=== PATIENT | male | born 2000 | race Caucasian/White ===

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

== ENCOUNTER 2022-02-13 19:43 | Emergency (ER) | payer OTHER ==
[2022-02-13 19:58] VITALS: RESP 18
[2022-02-13 20:16] LABS: Glucose,Whole Blood 93 mg/dL (75-99)
[2022-02-13] MEDS ORDERED: SODIUM CHLORIDE 0.9% 1,000 ML IV STA (20:40)
[2022-02-13] MEDS ORDERED: ACETAMINOPHEN TAB 500 MG TAB PO STA (20:41)
--- NOTE | 2022-02-13 20:51 | ED ---
General Adult HPI - General Chief complaint: Seizure Stated complaint: Seizure Time Seen by Provider: 02/13/22 20:12 Source: patient, EMS, RN notes reviewed Mode of arrival: EMS Limitations: no limitations - History of Present Illness Initial comments: 22-year-old male presents to the emergency department for evaluation status post seizure. 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 Coworker describes the seizure as lasting for 60 seconds with full body convulsion activity. Does complain of abrasion on the back of his scalp reports that he bit the inside of his mouth. Denies loss of bowel or bladder control. History of seizures though has only had four in his life and is not on any anti-seizure medications. Patient complained of nausea initially but states this has resolved. Does have a mild headache. Denies dizziness, vision changes, chest pain, difficulty breathing, abdominal pain, vomiting, diarrhea, hematuria, back pain, or extremity discomfort. - Related Data Home Medications Medication Instructions Recorded Confirmed No Known Home Medications 02/13/22 02/13/22 Allergies Allergy/AdvReac Type Severity Reaction Status Date / Time No Known Allergies Allergy Verified 02/13/22 21:55 Review of Systems ROS Statement: Those systems with pertinent positive or pertinent negative responses have been documented in the HPI. ROS Other: All systems not noted in ROS Statement are negative. 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 Initial temperature 97.5, pulse 60, respirations 18, blood pressure 113/72, pulse ox 99% on room air.) General appearance: alert, in no apparent distress Head exam: Present: normocephalic, other (3 cm abrasion on the right occipital region of the scalp) Expanded Head exam: Absent: laceration, contusion, hematoma, raccoon eyes, reilly's sign, tenderness of temporal artery, CSF rhinorrhea, CSF otorrhea Eye exam: Present: normal appearance, PERRL, EOMI. Absent: scleral icterus, conjunctival injection, nystagmus, periorbital swelling, periorbital tenderness Pupils: Absent: unequal ENT exam: Present: normal exam, mucous membranes moist, TM's normal bilaterally, other (small area of injury to the oral mucosa of the right lower lip consistent with bite injury) Neck exam: Present: normal inspection, full ROM. Absent: tenderness, meningismus, lymphadenopathy Respiratory exam: Present: normal lung sounds bilaterally. Absent: respiratory distress, wheezes, rales, rhonchi, stridor, chest wall tenderness Cardiovascular Exam: Present: regular rate, normal rhythm, normal heart sounds. Absent: systolic murmur, diastolic murmur, rubs, gallop, clicks GI/Abdominal exam: Present: soft, normal bowel sounds. Absent: distended, tenderness, guarding, rebound, rigid Extremities exam: Present: normal inspection, full ROM, normal capillary refill. Absent: tenderness, pedal edema, joint swelling Back exam: Present: normal inspection. Absent: paraspinal tenderness, vertebral tenderness Neurological exam: Present: alert, oriented X3 Expanded Patient oriented to: Present: person, place, time Speech: Present: fluid speech Cranial nerves: EOM's Intact: Normal, Tongue Deviation: Normal, Nystagmus: Normal, Facial Palsy with Forehead Movement: Normal Cerebellar function: Finger to Nose: Normal Motor strength exam: RUE: 5, LUE: 5, RLE: 5, LLE: 5 Eye Response: (4) open spontaneously Motor Response: (6) obeys commands Verbal Response: (5) oriented [place] Total: 15 Psychiatric exam: Present: normal affect, normal mood Skin exam: Present: warm, dry, intact, normal color. Absent: rash Course Vital Signs 02/13/22 02/14/22 19:45 01:01 Temperature 97.5 F L 98.6 F Pulse Rate 60 52 L Respiratory 18 18 Rate Blood Pressure 113/72 112/62 O2 Sat by Pulse 99 99 Oximetry - Reevaluation(s) Reevaluation #1: 02/13/22 22:15 Upon reassessment, patient is resting comfortably reporting his pain level is improved. Discussed the plan to discharge home and follow-up with neurology on an outpatient basis. Patient and mother are agreeable. Medical Decision Making - Medical Decision Making This is a pleasant 22-year-old male who presents to the emergency department for evaluation status post seizure. Upon exam, patient is awake, alert, and oriented 4. He is neurologically intact with no focal deficit. Complains of headache and is noted to have an abrasion on the right occipital region of the scalp. Patient was given IV fluids, Tylenol, and ice was applied to area of tenderness. Laboratory studies were obtained and are unremarkable. CT is negative. Patient continues to feel improved and is tolerating oral intake without difficulty. He will be discharged home to follow up with neurology on an outpatient basis. Return parameters were discussed in detail. Patient verbalizes understanding and agrees with this plan. Attending: Coby. - Lab Data Result diagrams: 02/13/22 20:45 02/13/22 20:45 Lab Results 02/13/22 02/13/22 02/13/22 Range/Units 20:15 20:45 20:45 WBC 6.3 (3.8-10.6) k/uL RBC 4.82 (4.30-5.90) m/uL Hgb 14.0 (13.0-17.5) gm/dL Hct 43.1 (39.0-53.0) % MCV 89.3 (80.0-100.0) fL MCH 29.1 (25.0-35.0) pg MCHC 32.6 (31.0-37.0) g/dL RDW 11.9 (11.5-15.5) % Plt Count 179 (150-450) k/uL MPV 9.9 Neutrophils % 51 % Lymphocytes % 40 % Monocytes % 5 % Eosinophils % 1 % Basophils % 2 % Neutrophils # 3.2 (1.3-7.7) k/uL Lymphocytes # 2.5 (1.0-4.8) k/uL Monocytes # 0.3 (0-1.0) k/uL Eosinophils # 0.1 (0-0.7) k/uL Basophils # 0.1 (0-0.2) k/uL Sodium (137-145) mmol/L Potassium (3.5-5.1) mmol/L Chloride (98-107) mmol/L Carbon Dioxide (22-30) mmol/L Anion Gap mmol/L BUN (9-20) mg/dL Creatinine (0.66-1.25) mg/dL Est GFR (CKD-EPI)AfAm (>60 ml/min/1.73 sqM) Est GFR (CKD-EPI)NonAf (>60 ml/min/1.73 sqM) Glucose (74-99) mg/dL POC Glucose (mg/dL) 93 (75-99) mg/dL POC Glu Computer Education Teacher ID Huy Gupta Calcium (8.4-10.2) mg/dL Magnesium (1.6-2.3) mg/dL Total Bilirubin (0.2-1.3) mg/dL AST (17-59) U/L ALT (4-49) U/L Alkaline Phosphatase (38-126) U/L Total Protein (6.3-8.2) g/dL Albumin (3.5-5.0) g/dL Urine Color Light Yellow Urine Appearance Clear (Clear) Urine pH 7.0 (5.0-8.0) Ur Specific [place] 1.011 (1.001-1.035) Urine Protein Negative (Negative) Urine Glucose (UA) Negative (Negative) Urine Ketones Negative (Negative) Urine Blood Negative (Negative) Urine Nitrite Negative (Negative) Urine Bilirubin Negative (Negative) Urine Urobilinogen <2.0 (<2.0) mg/dL Ur Leukocyte Esterase Negative (Negative) 02/13/22 Range/Units 20:45 WBC (3.8-10.6) k/uL RBC (4.30-5.90) m/uL Hgb (13.0-17.5) gm/dL Hct (39.0-53.0) % MCV (80.0-100.0) fL MCH (25.0-35.0) pg MCHC (31.0-37.0) g/dL RDW (11.5-15.5) % Plt Count (150-450) k/uL MPV Neutrophils % % Lymphocytes % % Monocytes % % Eosinophils % % Basophils % % Neutrophils # (1.3-7.7) k/uL Lymphocytes # (1.0-4.8) k/uL Monocytes # (0-1.0) k/uL Eosinophils # (0-0.7) k/uL Basophils # (0-0.2) k/uL Sodium 138 (137-145) mmol/L Potassium 3.9 (3.5-5.1) mmol/L Chloride 101 (98-107) mmol/L Carbon Dioxide 25 (22-30) mmol/L Anion Gap 12 mmol/L BUN 16 (9-20) mg/dL Creatinine 0.76 (0.66-1.25) mg/dL Est GFR (CKD-EPI)AfAm >90 (>60 ml/min/1.73 sqM) Est GFR (CKD-EPI)NonAf >90 (>60 ml/min/1.73 sqM) Glucose 91 (74-99) mg/dL POC Glucose (mg/dL) (75-99) mg/dL POC Glu Computer Education Teacher ID Calcium 9.5 (8.4-10.2) mg/dL Magnesium 2.3 (1.6-2.3) mg/dL Total Bilirubin 0.3 (0.2-1.3) mg/dL AST 23 (17-59) U/L ALT 16 (4-49) U/L Alkaline Phosphatase 54 (38-126) U/L Total Protein 7.0 (6.3-8.2) g/dL Albumin 4.6 (3.5-5.0) g/dL Urine Color Urine Appearance (Clear) Urine pH (5.0-8.0) Ur Specific [place] (1.001-1.035) Urine Protein (Negative) Urine Glucose (UA) (Negative) Urine Ketones (Negative) Urine Blood (Negative) Urine Nitrite (Negative) Urine Bilirubin (Negative) Urine Urobilinogen (<2.0) mg/dL Ur Leukocyte Esterase (Negative) - EKG Data EKG shows normal: sinus rhythm Rate: bradycardia EKG Comments: EKG obtained at 2003 shows sinus bradycardia with sinus arrhythmia and early repolarization. Ventricular rate 52, WI interval 175, QRS duration 97, QT/QTC 360/339. Interpretation borderline ECG. - Radiology Data Radiology results: report reviewed, image reviewed CT of the brain and C-spine was obtained. Report was reviewed in its entirety. Impression per Dr. Maddox is #1. No acute intracranial process. No bruit 2. Postsurgical changes to the skull underlying frontal lobe on the right. #3. No evidence of cervical spine fracture. Disposition Clinical Impression: Seizure, Scalp abrasion Disposition: HOME SELF-CARE Condition: Stable Instructions (If sedation given, give patient instructions): Head Injury (ED), Recurrent Seizures in Adults (ED) Additional Instructions: Please establish with neurology for follow-up care and evaluation. May take Tylenol or Motrin if needed for pain or discomfort. Monitor carefully for any signs of confusion, repeated episodes of vomiting, or difficulty to awaken. Return to the emergency department with any new, worsening, or concerning symptoms. Is patient prescribed a controlled substance at d/c from ED?: No Referrals: None,Stated [Primary Care Provider] - 1-2 days Manpreet Erickson MD [STAFF PHYSICIAN] - 1-2 days Time of Disposition: 23:00
[2022-02-13 20:57] LABS: Basophils # (A) 0.1 k/uL (0-0.2); Basophils % (A) 2 %; Eosinophils # (A) 0.1 k/uL (0-0.7); Eosinophils % (A) 1 %; HCT 43.1 % (39.0-53.0); Lymphocytes # (A) 2.5 k/uL (1.0-4.8); Lymphocytes % (A) 40 %; MCH 29.1 pg (25.0-35.0); MCHC 32.6 g/dL (31.0-37.0); MCV 89.3 fL (80.0-100.0); Mean Platelet Volume 9.9; Monocytes # (A) 0.3 k/uL (0-1.0); Monocytes % (A) 5 %; Neutrophils # (A) 3.2 k/uL (1.3-7.7); Neutrophils % (A) 51 %; Platelet Count 179 k/uL (150-450); RBC 4.82 m/uL (4.30-5.90); RDW 11.9 % (11.5-15.5); WBC 6.3 k/uL (3.8-10.6)
[2022-02-13 21:20] LABS: ALT 16 U/L (4-49); AST 23 U/L (17-59); African American GFR (CKD) >90 (>60 ml/min/1.73 sqM); Albumin 4.6 g/dL (3.5-5.0); Alkaline Phosphatase 54 U/L (38-126); Anion Gap 12 mmol/L; Blood Urea Nitrogen 16 mg/dL (9-20); Calcium 9.5 mg/dL (8.4-10.2); Carbon Dioxide 25 mmol/L (22-30); Chloride 101 mmol/L (98-107); Glucose 91 mg/dL (74-99); Magnesium 2.3 mg/dL (1.6-2.3); Non-African American GFR(CKD) >90 (>60 ml/min/1.73 sqM); Potassium 3.9 mmol/L (3.5-5.1); Sodium 138 mmol/L (137-145); Total Bilirubin 0.3 mg/dL (0.2-1.3)
--- NOTE | 2022-02-13 21:20 | CT ---
EXAMINATION TYPE: CT brain cspine wo con CT DLP: 1457.1 mGycm, Automated exposure control for dose reduction was used. DATE OF EXAM: 02/13/2022 9:01 PM COMPARISON: None.. CLINICAL INDICATION:Male, 22 years old with history of pain; seizure TECHNIQUE: Brain: Multiple axial CT images of the brain were obtained without IV contrast. Cspine: Axial CT images from the skull base to the inferior aspect of T2 we obtained without intraven ous contrast. Coronal and sagittal reformatted images were also reviewed. FINDINGS: Brain: Extra-axial spaces: No abnormal extra-axial fluid collections. Ventricular system: Within normal limits Cerebral parenchyma: Presumably postsurgical changes to the frontal lobe on the right adjacent to the craniotomy. No acute intraparenchymal hemorrhage or mass effect. The ravi-white junction is well di fferentiated. Cerebellum: Unremarkable. Mass effect: No evidence of midline shift. Intracranial vasculature: unremarkable Soft tissues: Normal. Calvarium/osseous structures: No depressed skull fracture. Craniotomy changes in the frontal skull. Paranasal sinuses and mastoid air cells: Clear. Visualized orbits: Orbital contents are intact. Cervical spine: Fracture: None. Osseous structures: Unremarkable Vertebral alignment: Within normal limits. Spinal canal/Neural Foramina: No evidence of significant spinal canal narrowing. No evidence for sign ificant neural foraminal stenosis. Neck soft tissues: Prevertebral soft tissues are within normal limits. Other: The airway is patent. The lung apices are clear. IMPRESSION: 1. No acute intracranial process. 2. Postsurgical changes to the skull underlying frontal lobe on the right. 3. No evidence of cervical spine fracture.
[2022-02-13 22:52] LABS: Appearance,Urine Clear (Clear); Bilirubin,Urine Negative (Negative); Blood,Urine Negative (Negative); Color,Urine Light Yellow; Glucose,Urine (UA) Negative (Negative); Ketones,Urine Negative (Negative); Leukocyte Esterase,Urine Negative (Negative); Nitrite,Urine Negative (Negative); Protein,Urine Negative (Negative); Specific Gravity,Urine 1.011 (1.001-1.035); Urobilinogen,Urine <2.0 mg/dL (<2.0)
[2022-02-14 01:03] VITALS: BP 112/62; PULSE 52; TEMP 98.6
== END 2022-02-13 23:10 | disposition home or self-care (01) ==
LOC: EC 19:43
DX: S00.01XA Abrasion of scalp, initial encounter (principal); F17.200 Nicotine dependence, unspecified, uncomplicated; W08.XXXA Fall from other furniture, initial encounter; Y92.000 Kitchen of unspecified non-institutional (private) residence as the place of occurrence of the external cause
CPT/HCPCS: 36415; 70450; 72125; 80053; 81003; 83735; 85025; 96360; 96361; 99285